=== PATIENT | female | born 1975 | race African-American/Black ===

== ENCOUNTER 2017-08-14 13:13 | Emergency (ER) | payer MEDICAID, OTHER ==
[~2017-08-14] VITALS: Ht 160 cm; Wt 100.0 kg
[~2017-08-14 13:13] MED LIST: CYCL1TAB29 PO; HYDR-3535 PO; LOSA100T PO; MOTR200T4 PO; TIZA6CAP3 PO
[2017-08-14 13:14] VITALS: BP 176/93; PULSE 66; RESP 18; TEMP 98.5; O2SAT 99
== END 2017-08-14 18:22 | disposition left against medical advice (07) ==
LOC: NED 13:13
DX: Z53.21 Procedure and treatment not carried out due to patient leaving prior to being seen by health care provider (principal)
CPT/HCPCS: 99281

== ENCOUNTER 2017-11-22 09:11 | Emergency (ER) | payer BC, OTHER ==
[~2017-11-22] VITALS: Ht 160 cm; Wt 90.5 kg
[~2017-11-22 09:11] MED LIST changes: +CYCL10TA PO; -CYCL1TAB29 PO
[2017-11-22 09:12] VITALS: BP 146/95; PULSE 84; RESP 16; TEMP 101; O2SAT 100
[2017-11-22] MEDS ORDERED: KETOROLAC TROMETHAMINE 60 MG/2 ML (IM) VIAL IM ONE (10:00)
--- NOTE | 2017-11-22 10:01 | PD ---
HPI Chief Complaint: Cold / Flu Symptoms Time Seen by Provider: 09:46 Travel History International Travel<30 days: No Contact w/Intl Traveler<30days: No Traveled to known affect area: No History of Present Illness HPI 42-year-old female presents emergency Department with complaint of nasal congestion, left ear pain, sore throat, cough, body aches, headache, subjective fever since yesterday. MAXIMUM TEMPERATURE of 101.0 here in the ER. Denies dental pain, nausea, vomiting, diarrhea. Reports pain in her left upper back with breathing and coughing. Denies chest pain, shortness of breath. Symptoms are [id number] in severity. Has taken TheraFlu for symptom management. No known relieving or aggravating factors. No known sick contacts. No known allergies. Dr. Jenn Reddy is primary care provider. Denies significant past medical history. Has no other medical complaints. No other modifying factors or associated signs and symptoms. 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) ?: Not : 2 Para: 1 Miscarriage: 1 Social History Alcohol Use: Yes (Occ.) Tobacco Use: No Substance Use: No Allergies-Medications (Allergen,Severity, Reaction): Coded Allergies: No Known Allergies (Verified Adverse Reaction, Unknown, 11/22/17) Reported Meds & Prescriptions Reported Meds & Active Scripts Active Reported Tizanidine (Tizanidine HCl) 6 Mg Cap 6 Mg PO TID Losartan (Losartan Potassium) 100 Mg Tab 100 Mg PO DAILY Review of Systems Except as stated in HPI: all other systems reviewed are Neg Physical Exam Narrative GENERAL: Well-nourished, well-developed black female patient, in no acute distress; afebrile, nontoxic-appearing SKIN: Warm and dry. No rash. HEAD: Atraumatic. Normocephalic. EYES: Pupils equal and round. No scleral icterus. No injection or drainage. ENT: Mucosa pink and moist. No erythema or exudates. No uvular edema. No uvular , palatal, or tonsillar deviation. Airway patent. EARS: Bilateral pinnae and external canals appear within normal limits. Bilateral tympanic membranes without erythema, dullness or perforation. NECK: Trachea midline. No lymphadenopathy. CARDIOVASCULAR: Regular rate and rhythm. No murmur appreciated. RESPIRATORY: No accessory muscle use. Clear to auscultation. Breath sounds equal bilaterally. No retractions or tachypnea. GASTROINTESTINAL: Abdomen soft, non-tender, nondistended. Hepatic and splenic margins not palpable. Bowel sounds are active 4 quadrants. MUSCULOSKELETAL: No obvious deformities. No clubbing. No cyanosis. No edema. NEUROLOGICAL: Awake and alert. Oriented 3. No obvious cranial nerve deficits. Motor grossly within normal limits. Normal speech. Moves all extremities. 5/5 strength to all extremities. PSYCHIATRIC: Appropriate mood and affect; insight and judgment normal. Data Data Last Documented VS Vital Signs Date Time Temp Pulse Resp B/P (MAP) Pulse Ox O2 Delivery O2 Flow Rate FiO2 11/22/17 09:12 101.0 84 16 146/95 (112) 100 Room Air Orders Orders Chest, Single Ap (11/22/17 09:53) Influenzae A/B Antigen (11/22/17 09:53) Group A Rapid Strep Screen (11/22/17 09:53) Ketorolac Inj (Toradol Inj) (11/22/17 10:00) Strep Culture (Group A) (11/22/17 09:25) MDM Medical Decision Making Medical Screen Exam Complete: Yes Emergency Medical Condition: Yes Medical Record Reviewed: Yes Differential Diagnosis Influenza, pneumonia, URI, bronchitis, viral illness Narrative Course 42-year-old female with cold/flu symptoms since yesterday. Fever of 100.1 in the ER. Nontoxic appearing. Toradol, chest x-ray, influenza, rapid strep ordered. 1031: Chest x-ray with no acute findings. 1119: Influenza B+. Tamiflu prescribed for home. Discussed viral illness and symptom management. Instructed patient to follow up with primary care provider. Patient verbalizes understanding and agreement with treatment plan. Patient is medically cleared and stable for discharge. Discussed reasons to return to the emergency department. Patient agrees with treatment plan. The patients vital signs are stable and the patient is stable for outpatient follow- up and treatment. Patient discharged home, stable and in no acute distress. Diagnosis Primary Impression: Influenza B Referrals: [facility] Primary Care Physician Patient Instructions: General Instructions, Influenza (ED) Departure Forms: Tests/Procedures, Work Release Special Instructions: May return to work when fever free for 24 hours Additional Instructions: Ibuprofen or Tylenol as directed and as needed to reduce fever; may alternate ibuprofen and Tylenol as needed every 3 hours to minimize fever [id number] cold/flu medications as directed and as needed for symptom management Get plenty of sleep/rest Drink plenty of fluids to prevent dehydration; such as Gatorade, Powerade, Pedialyte M[place] diet to encourage nutrition such as crackers, fruit, applesauce, toast, soup etc. Use an air humidifier/turn off ceiling fans Follow-up with your primary care provider within 1 day Return immediately to the emergency department with worsening of symptoms Med/Other Pt SpecificInfo: Prescription(s) given Scripts Oseltamivir (Tamiflu) 75 Mg Cap 75 MG PO BID for Mgmt Viral Infection for 5 Days, #10 CAP 0 Refills Prov: Nini Mena 11/22/17 Disposition: 01 DISCHARGE HOME Condition: Stable Nini Mena Nov 22, 2017 10:01
--- NOTE | 2017-11-22 10:26 | RADRPT ---
EXAM DATE/TIME: 11/22/2017 10:08 [facility] COMPARISON: CHEST SINGLE AP, September 03, 2014, 2:04. INDICATIONS : Fever, cough with shortness of breath. MEDICAL HISTORY : None. SURGICAL HISTORY : None. ENCOUNTER: Initial ACUITY: 1 week PAIN SCORE: 2/10 LOCATION: Bilateral chest FINDINGS: A single view of the chest demonstrates the lungs to be symmetrically aerated without evidence of mas s, infiltrate or effusion. The cardiomediastinal contours are unremarkable. Osseous structures are intact. CONCLUSION: No acute disease. René Cortez MD on November 22, 2017 at 10:23 Board Certified Radiologist. This report was verified electronically.
[2017-11-22] MEDS ORDERED: OSEL75 PO (11:19)
== END 2017-11-22 11:32 | disposition home or self-care (01) ==
LOC: NEPK 09:11
DX: J11.1 Influenza due to unidentified influenza virus with other respiratory manifestations (principal); F41.9 Anxiety disorder, unspecified; F32.9 Major depressive disorder, single episode, unspecified; I10 Essential (primary) hypertension; Z79.899 Other long term (current) drug therapy; Z86.73 Personal history of transient ischemic attack (TIA), and cerebral infarction without residual deficits
CPT/HCPCS: 71045; 87081; 87804; 87880; 96372; 99284; J1885